=== PATIENT | male | born 1955 | race Caucasian/White ===

== ENCOUNTER → 2019-11-09 15:23 | Outpatient (BNVA) | payer BC, SELFPAY | PROVIDERS: Visit Provider Nurse Practitioner Family | DX: R30.0 Dysuria (principal) | CPT/HCPCS: 81001 ==

== ENCOUNTER → 2020-12-04 11:15 | Outpatient (BNVA) | payer BC, SELFPAY | PROVIDERS: Visit Provider Nurse Practitioner Family | DX: M25.552 Pain in left hip (principal); G89.29 Other chronic pain; M51.36 Other intervertebral disc degeneration, lumbar region; Z79.899 Other long term (current) drug therapy; Z13.6 Encounter for screening for cardiovascular disorders; E55.9 Vitamin D deficiency, unspecified | CPT/HCPCS: 80053; 80061; 81003; 82306; 83036; 84443; 85025 ==

== ENCOUNTER → 2020-12-11 14:34 | Outpatient (BNVA) | payer BC, SELFPAY | PROVIDERS: Referring Provider Nurse Practitioner Family; Visit Provider Orthopaedic Surgery | DX: M48.062 Spinal stenosis, lumbar region with neurogenic claudication; G89.29 Other chronic pain | CPT/HCPCS: 72110; 73523 ==

== ENCOUNTER → 2020-12-18 08:29 | Outpatient (BNVA) | payer BC, SELFPAY | PROVIDERS: PCP Nurse Practitioner Family; Referring Provider Orthopaedic Surgery; Visit Provider Anesthesiology Pain Medicine | DX: G89.29 Other chronic pain (principal); M54.9 Dorsalgia, unspecified; M47.816 Spondylosis without myelopathy or radiculopathy, lumbar region; M51.36 Other intervertebral disc degeneration, lumbar region; M25.552 Pain in left hip | CPT/HCPCS: 99205 ==

== ENCOUNTER → 2021-12-09 11:00 | Outpatient (BNVA) | payer BC, SELFPAY | PROVIDERS: PCP Nurse Practitioner Family; Visit Provider Nurse Practitioner | DX: M25.511 Pain in right shoulder (principal) | CPT/HCPCS: 73030 ==

== ENCOUNTER 2022-01-20 06:01 | Outpatient (CLI) | payer BC, SELFPAY ==
--- NOTE | 2022-01-20 06:15 | US_ITS ---
WS: [id number] Complete ABDOMINAL ULTRASOUND HISTORY: R19.7 - Diarrhea, unspecified COMPARISON: None available. Liver: 17.8 cm in length. Liver is top normal size. No mass or bile duct dilatation. Normal echogenic ity. Portal Vein: Normal hepatopetal flow with monophasic waveform. Gallbladder: Normally distended with no gallstones, wall thickening or pericholecystic fluid. Gallbladder wall thickness: 0.3 cm. Pancreas: Only partially visualized due to body habitus and bowel gas. CBD: 0.3 cm. Right kidney: 10.0 cm x 4.5 cm x 4.5 cm. No mass, cortical thickening or hydronephrosis. Left kidney: 9.7 cm x 6.2 cm x 7.5 cm. No mass, cortical thickening or hydronephrosis. Spleen: Normal size and echogenicity. Abdominal aorta and IVC are within normal limits. No ascites. US/US abdomen complete* [id number] IMPRESSION: 1. Normal gallbladder. 2. Very mild hepatomegaly. 3. Negative kidneys.
== END 2022-01-20 06:02 | disposition home or self-care (01) ==
LOC: RAD 06:02
PROVIDERS: PCP Nurse Practitioner; Visit Provider Nurse Practitioner
DX: R19.7 Diarrhea, unspecified (principal); R10.9 Unspecified abdominal pain
CPT/HCPCS: 73030; 76700

== ENCOUNTER 2022-04-03 07:46 | Outpatient (CLI) | payer BC, SELFPAY ==
--- NOTE | 2022-04-03 08:00 | NM_ITS ---
WS: [id number] NUCLEAR MEDICINE HIDA SCAN CLINICAL INFORMATION: R19.8 - Other specified symptoms and signs involving the ... TECHNIQUE: Following intravenous administration of 7.5 mCi of technetium 99m mebrofenin, images of th e abdomen were obtained over the course of 60 minutes. Next, gallbladder ejection fraction was determ ined by obtaining preprandial and one-hour postprandial images of the gallbladder following oral richardson stion of Ensure. COMPARISON: Ultrasound January 20, 2022 FINDINGS: Normal hepatic uptake at 5 minutes. Hepatomegaly. Normal hepatic excretion. Gallbladder is visualized by 15 minutes. No evidence of acute cholecystitis. Normal common bile duct and small bowel activity. Gallbladder ejection fraction 82% within normal limits. No evidence of chronic cholecystitis. NM/NM hepatobiliary w phar* [id number] IMPRESSION: 1. No evidence of acute or chronic cholecystitis. 2. Gallbladder ejection fraction 82% within normal limits
== END 2022-04-03 07:47 | disposition home or self-care (01) ==
PROVIDERS: PCP Nurse Practitioner; Visit Provider Nurse Practitioner
DX: R19.8 Other specified symptoms and signs involving the digestive system and abdomen (principal)
CPT/HCPCS: 78227; A9537

== ENCOUNTER 2022-04-28 08:22 | Outpatient (CLI) | payer BC, SELFPAY ==
--- NOTE | 2022-04-28 08:30 | FL_ITS ---
WS: [id number] Exam: FL barium swallow modifd [id number] Date/Time of Exam: 04/28/2022 8:55 AM Reason For Exam: Fluoroscopy time: 2min [id number] minutes # of spot films: 1 Modified barium swallow was performed in conjunction with the speech therapy service. Swallowing function at the level of the oropharynx was normal. The patient tolerated thin liquid, nec tar consistency, and pudding consistency barium foodstuffs without difficulty. The patient tolerated solid barium mixture foodstuffs well. The patient ingested a barium tablet without complication or di fficulty. No aspiration or penetration was identified. FL/FL barium swallow modifd [id number] IMPRESSION: 1. Unremarkable modified barium swallow. No aspiration or penetration was ident ified. A separate report of findings and recommendations will follow from the speech t herapy service.
== END 2022-04-28 08:23 | disposition home or self-care (01) ==
LOC: RAD 08:24
PROVIDERS: PCP Nurse Practitioner; Visit Provider Surgery
DX: R19.7 Diarrhea, unspecified (principal)
CPT/HCPCS: 74230; 92611

== ENCOUNTER 2022-05-15 08:11 | Day surgery (SDC) | payer BC, SELFPAY ==
[2022-05-13 13:41] VITALS: BMI 24.5
[2022-05-15 08:23] VITALS: BP 148/90; PULSE 86; RESP 18; TEMP 36.4; O2SAT 98
[2022-05-15] MEDS: sodium chloride 0.9% 1,000 ML 30 ML IV (08:35)
--- NOTE | 2022-05-15 09:10 | ANES.PREANE2 ---
Pre-Anesthetic Assessment Height/Weight: Height 1.73 m Weight 73.028 kg Temp Pulse Resp BP Pulse Ox O2 Del Method 97.5 F L 86 18 148/90 98 05/15/22 08:23 05/15/22 08:23 05/15/22 08:23 05/15/22 08:23 05/15/22 08:23 05/15/22 08:23 Preop Diagnosis: Dysphagia and change in bowel habit Operation Date: 05/15/22 09:45 Proposed Procedures p EGD and colonoscopy [id number],R19.7,R13.10(Not Applicable) - Riley Marie MD s Colonoscopy(Not Applicable) - Riley Marie MD Familial anesthetic complications: none Was Beta Kimmie taken within 24 hours: N/A Was Clonidine taken within 24 hours: N/A Last intake: Intake Last Liquid Date 05/14/22 Last Liquid Time 23:30 Last Solid Date 05/13/22 Last Solid Time 17:00 Social No alcohol and No tobacco Exam alert, oriented x 3, clear to auscultation bilaterally and regular rate & rhythm Airway Submandibular: within normal limits Cervical ROM: within normal limits Mallampati: Class II Dentition: full CV/HEM Hypertension Musc/skel Lower Back Pain Anesthetic Plan ASA status: 2 Anesthesia: MAC Medications/Allergies Home Medications Medication Instructions Recorded Confirmed Last Taken Type acetaminophen 325 mg tablet 325 mg PO QID PRN headache 11/09/19 05/15/22 05/14/22 History (Tylenol) dorzolamide 2 % eye drops 1 drp ophthalmic (eye) TID 12/04/20 05/15/22 05/15/22 History latanoprostene bunod 0.024 % eye 1 drp ophthalmic (eye) DAILY 12/04/20 05/15/22 05/14/22 History drops Allergies Allergy/AdvReac Type Severity Reaction Status Date / Time ciprofloxacin [From Cipro] Allergy unknown Verified 04/08/22 13:54 levofloxacin [From Levaquin] Allergy unknown Verified 04/08/22 13:54 timolol Allergy chest pain Verified 04/08/22 13:54 Corticosteroids AdvReac Unknown Verified 04/08/22 13:54 (Glucocorticoids) lodine Allergy chest pain Uncoded 04/08/22 13:54 Current Medications Generic Name Dose Route Start Last Admin Trade Name Freq PRN Reason Stop Dose Admin Sodium Chloride 1,000 mls @ 30 mls/hr 05/15/22 08:30 05/15/22 08:35 Sodium Chloride 0.9% IV 30 mls/hr .Q24H LYDIA Administration PFSH Anesthesia Medical History Chronic left hip pain DDD (degenerative disc disease), lumbar Dermatitis Fracture of tibia or fibula following insertion of orthopedic implant, joint prosthesis, or bone plate, left leg GERD (gastroesophageal reflux disease) Glaucoma Hypertension screen Low back pain radiating to both legs Medication management Skin lesion Vitamin D deficiency Vitamin D deficiency Surgical History S/P hernia repair S/P left knee surgery S/P nasal polypectomy Status post appendectomy Status post excision of neuroma both feet Status post functional endoscopic sinus surgery Status post glaucoma surgery Family History Other CAD (coronary artery disease) Hypertension Social History Smoking and tobacco status: never smoked Alcohol intake: never History of recent travel: No Data Anesthesia Cardiac Studies: No Data to Display
--- NOTE | 2022-05-15 09:32 | W.PM.OPSFHP ---
Same Day Surgery H&P Indication for Procedure/HPI DATE OF PROCEDURE: May 15, 2022 CHIEF COMPLAINT/INDICATIONFOR SURGICAL PROCEDURE: Bowel issues PREOP DIAGNOSIS: Dysphagia and change in bowel habit PLANNED PROCEDURE: Operation Date: 05/15/22 09:45 Proposed Procedures p EGD and colonoscopy [id number],R19.7,R13.10(Not Applicable) - Riley Marie MD s Colonoscopy(Not Applicable) - Riley Marie MD 04/08/2022 This is a pleasant 66 years old gentleman presents with history of intermittent episodes of difficulty of swallowing.? Also patient reports history of loose stools that got worse.? He reports weight loss of about 10 to 12 pounds over the past few months.? No associated pain with dysphagia. Patient reports history of diarrhea, nonbloody in nature, has been going on for quite some time.? Patient denies history of recent travels, antibiotics, change in medications, questionable source of water, no history of sick contacts, no history of thyroid disorders. Patient reports no history of gallbladder disorders.? And denies history of colon cancer, last colonoscopy was done about 10 to 15 years ago and does not recall any abnormalities.? Patient did notice though that he feels better when he avoids milk products. Interim history 05/15/2022 Patient comes today for diagnostic EGD and colonoscopy, patient did undergo a modified barium swallow on 04/28/2022 and did show; Unremarkable modified barium swallow. No aspiration or penetration was identified. ROS All systems have been reviewed negative except as for the above or per problem list. Medications/Allergies* Home Medications Medication Instructions Recorded Confirmed Type acetaminophen 325 mg tablet 325 mg PO QID PRN headache 11/09/19 05/15/22 History (Tylenol) dorzolamide 2 % eye drops 1 drp ophthalmic (eye) TID 12/04/20 05/15/22 History latanoprostene bunod 0.024 % eye 1 drp ophthalmic (eye) DAILY 12/04/20 05/15/22 History drops Allergies/Adverse Reactions Allergy/AdvReac Type Severity Reaction Status Date / Time ciprofloxacin [From Cipro] Allergy unknown Verified 05/15/22 09:33 levofloxacin [From Levaquin] Allergy unknown Verified 05/15/22 09:33 timolol Allergy chest pain Verified 05/15/22 09:33 Corticosteroids AdvReac Unknown Verified 05/15/22 09:33 (Glucocorticoids) lodine Allergy chest pain Uncoded 05/15/22 09:33 Current Medications: Generic Name Dose Route Start Last Admin Trade Name Anand PRN Reason Stop Dose Admin Sodium Chloride 1,000 mls @ 30 mls/hr 05/15/22 08:30 05/15/22 08:35 Sodium Chloride 0.9% IV 30 mls/hr .Q24H LYDIA Administration Pertinent History/Comorbid Conditions* Medical History (Updated 04/08/22 @ 13:55 by Riley Marie MD) Chronic left hip pain DDD (degenerative disc disease), lumbar Dermatitis Fracture of tibia or fibula following insertion of orthopedic implant, joint prosthesis, or bone plate, left leg GERD (gastroesophageal reflux disease) Glaucoma Hypertension screen Low back pain radiating to both legs Medication management Skin lesion Vitamin D deficiency Vitamin D deficiency Surgical History (Updated 06/26/21 @ 10:36 by Mackenzie Lynn DO) S/P hernia repair S/P left knee surgery S/P nasal polypectomy Status post appendectomy Status post excision of neuroma both feet Status post functional endoscopic sinus surgery Status post glaucoma surgery Family History (Updated 11/09/19 @ 15:14 by Andressa Christensen LPN) CAD (coronary artery disease) Hypertension Social History Smoking and tobacco status: never smoked Alcohol intake: never History of recent travel: No Pertinent Exam Findings alert, oriented x 3, regular rate & rhythm and procedure specific exam findings (Abdominal exam nontender nondistended soft) Recommendations Surgery/Procedure today (Diagnostic EGD and colonoscopy) Coding Level of Care Code Acute Supervisor Maintenance And Custodians for Dominik Mccollum
[2022-05-15 10:38] VITALS: BP 107/76; PULSE 89; RESP 14; TEMP 36.1; O2SAT 95
[2022-05-15 10:54] VITALS: BP 105/74; PULSE 77; RESP 16; O2SAT 96
[2022-05-15 11:06] VITALS: BP 134/84; PULSE 71; RESP 16; O2SAT 95
[2022-05-15 11:16] VITALS: BP 135/87; PULSE 72; RESP 18; O2SAT 94
--- NOTE | 2022-05-15 14:57 | ANE.PACU2 ---
Inpatient post-anesthesia follow up: Airway intact: Yes Vital signs: Temperature 97 F Pulse Rate 72 Respiratory Rate 18 Blood Pressure 135/87 Pulse Oximetry 94 Oxygen Delivery Me thod Room Air Oxygen Flow Rate Fraction of Inspir ed Oxygen Hydration adequate: Yes Nausea and vomiting: No Pain level: 1 Mental status: Baseline
== END 2022-05-15 11:28 | disposition home or self-care (01) ==
PROVIDERS: PCP Nurse Practitioner; Visit Provider Surgery
PROC: 0DJ08ZZ Inspection of Upper Intestinal Tract, Via Natural or Artificial Opening Endoscopic (ICD-10-PCS; CPT 43235; principal; 2022-05-15 09:45)
PROC: 0DJD8ZZ Inspection of Lower Intestinal Tract, Via Natural or Artificial Opening Endoscopic (ICD-10-PCS; CPT 45378; 2022-05-15 09:45)
DX: R19.7 Diarrhea, unspecified (principal); R13.10 Dysphagia, unspecified; K57.30 Diverticulosis of large intestine without perforation or abscess without bleeding; K21.00 Gastro-esophageal reflux disease with esophagitis, without bleeding; K44.9 Diaphragmatic hernia without obstruction or gangrene; K29.80 Duodenitis without bleeding; K29.50 Unspecified chronic gastritis without bleeding; B96.81 Helicobacter pylori [H. pylori] as the cause of diseases classified elsewhere
CPT/HCPCS: 43239; 45378; 82274; 83630; 87493; 87506; 88305; J2704; J7030

== ENCOUNTER → 2022-07-07 09:03 | Outpatient (BNVA) | payer BC, SELFPAY | PROVIDERS: PCP Nurse Practitioner; Visit Provider Nurse Practitioner | DX: R53.83 Other fatigue (principal); Z79.899 Other long term (current) drug therapy; A04.72 Enterocolitis due to Clostridium difficile, not specified as recurrent | CPT/HCPCS: 80053; 80061; 85025; 87338; 87493 ==

== ENCOUNTER → 2022-07-30 11:45 | Outpatient (BNVA) | payer BC, SELFPAY | PROVIDERS: PCP Nurse Practitioner; Visit Provider Nurse Practitioner | DX: A04.72 Enterocolitis due to Clostridium difficile, not specified as recurrent (principal) | CPT/HCPCS: 87493 ==

== ENCOUNTER 2022-12-05 14:13 | Outpatient (CLI) | payer BC, SELFPAY ==
--- NOTE | 2022-12-05 14:30 | MR_ITS ---
WS: [id number] MRI RIGHT KNEE NONCONTRAST TECHNIQUE: Axial PD, coronal PD fat sat, coronal PD, sagittal PD, and sagittal PD fat-sat images obta ined. CLINICAL INFORMATION: M25.561 - Pain in right knee COMPARISON: None. FINDINGS: Distal quadriceps and patella tendons are intact. ACL and PCL appear intact. Hypertrophic patella. Mo derate to advanced tricompartmental arthritis. Moderate joint space narrowing medial and lateral join t compartments. Moderate to advanced chondromalacia patella. Patellar retinaculum appears intact. Medial and lateral collateral ligaments appear intact. Tiny popliteal cyst. Subchondral cystic change with edema involving the posterior medial tibial plateau and tibial spines. Normal lateral meniscus. Tiny horizontal tear involving the posterior horn medial meniscus extending to the articular surface . No other suspicious findings. MR/MR knee RT wo con* [id number] IMPRESSION: 1. Normal ACL and PCL. 2. 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 3. Moderate chondromalacia patella. 4. Subchondral cystic change and edema involving the posterior medial tibial p lateau and tibial spines. 5. Tiny horizontal tear involving the posterior horn medial meniscus extending to the articular surface. 6. Medial and lateral collateral ligaments appear intact. 7. Tiny popliteal cyst. Outbridge grading:
== END 2022-12-05 14:14 | disposition home or self-care (01) ==
PROVIDERS: PCP Nurse Practitioner; Visit Provider Nurse Practitioner
DX: M71.21 Synovial cyst of popliteal space [Baker], right knee; M13.861 Other specified arthritis, right knee; M22.41 Chondromalacia patellae, right knee; S83.241A Other tear of medial meniscus, current injury, right knee, initial encounter; X58.XXXA Exposure to other specified factors, initial encounter
CPT/HCPCS: 73721

== ENCOUNTER → 2022-12-10 14:38 | Outpatient (BNVA) | payer BC, SELFPAY | PROVIDERS: PCP Nurse Practitioner; Visit Provider Specialist | DX: M25.561 Pain in right knee (principal) | CPT/HCPCS: 73560; 73565 ==

== ENCOUNTER → 2023-01-15 08:58 | Outpatient (BNVA) | payer BC, SELFPAY | PROVIDERS: PCP Nurse Practitioner; Visit Provider Nurse Practitioner | DX: A04.72 Enterocolitis due to Clostridium difficile, not specified as recurrent (principal) | CPT/HCPCS: 87338; 87493 ==

== ENCOUNTER → 2023-01-22 09:17 | Outpatient (BNVA) | payer BC, SELFPAY | PROVIDERS: PCP Nurse Practitioner; Visit Provider Nurse Practitioner | DX: A04.72 Enterocolitis due to Clostridium difficile, not specified as recurrent (principal) | CPT/HCPCS: 87493 ==

== ENCOUNTER → 2023-09-16 13:26 | Outpatient (BNVA) | payer BC, SELFPAY | PROVIDERS: PCP Nurse Practitioner; Visit Provider Specialist | DX: M17.32 Unilateral post-traumatic osteoarthritis, left knee; M17.11 Unilateral primary osteoarthritis, right knee | CPT/HCPCS: 73560; 73565 ==

== ENCOUNTER → 2024-01-29 12:07 | Outpatient (BNVA) | payer BC, SELFPAY | PROVIDERS: PCP Nurse Practitioner Family; Visit Provider Nurse Practitioner Family | DX: Z13.6 Encounter for screening for cardiovascular disorders (principal); E55.9 Vitamin D deficiency, unspecified; Z79.899 Other long term (current) drug therapy; Z12.5 Encounter for screening for malignant neoplasm of prostate; R06.02 Shortness of breath | CPT/HCPCS: 71046; 80053; 80061; 81003; 83036; 84443; 85025; G0103 ==

== ENCOUNTER → 2024-06-27 14:26 | Outpatient (BNVA) | payer BC, SELFPAY | PROVIDERS: PCP Nurse Practitioner Family; Visit Provider Nurse Practitioner Family | DX: A04.72 Enterocolitis due to Clostridium difficile, not specified as recurrent (principal); K52.9 Noninfective gastroenteritis and colitis, unspecified; Z91.018 Allergy to other foods; A04.8 Other specified bacterial intestinal infections | CPT/HCPCS: 82784; 82785; 83516; 86001; 86003 ==

== ENCOUNTER → 2024-06-28 11:14 | Outpatient (BNVA) | payer BC, SELFPAY | PROVIDERS: PCP Nurse Practitioner Family; Visit Provider Nurse Practitioner Family | DX: A04.72 Enterocolitis due to Clostridium difficile, not specified as recurrent (principal); K52.9 Noninfective gastroenteritis and colitis, unspecified; Z91.018 Allergy to other foods; A04.8 Other specified bacterial intestinal infections | CPT/HCPCS: 83630; 87177; 87209; 87328; 87329; 87338; 87493 ==

== ENCOUNTER → 2024-07-11 14:02 | Outpatient (BNVA) | payer BC, SELFPAY | PROVIDERS: PCP Nurse Practitioner Family; Visit Provider Nurse Practitioner Family | DX: A93.8 Other specified arthropod-borne viral fevers (principal) | CPT/HCPCS: 86003; 86008; 86160; 86618; 86666; 86668; 86753; 86757 ==

== ENCOUNTER → 2024-08-04 16:43 | Outpatient (BNVA) | payer BC, SELFPAY | PROVIDERS: PCP Nurse Practitioner Family; Visit Provider Nurse Practitioner Family | DX: R31.9 Hematuria, unspecified | CPT/HCPCS: 81000 ==

== ENCOUNTER 2025-02-28 05:00 | Outpatient (RCR) | payer BC, SELFPAY | END 2025-03-30 23:59 | disposition home or self-care (01) | LOC: WPT 05:00 | PROVIDERS: PCP Nurse Practitioner Family; Visit Provider Nurse Practitioner Family | DX: R42 Dizziness and giddiness (principal) | CPT/HCPCS: 97110; 97161; 97530 ==

== ENCOUNTER 2025-03-31 05:00 | Outpatient (RCR) | payer BC, SELFPAY | END 2025-04-30 23:59 | disposition home or self-care (01) | LOC: WPT 05:00 | PROVIDERS: PCP Nurse Practitioner Family; Visit Provider Nurse Practitioner Family | DX: R42 Dizziness and giddiness (principal) | CPT/HCPCS: 97110; 97530 ==

== ENCOUNTER → 2025-05-10 16:10 | Outpatient (BNVA) | payer BC, SELFPAY | PROVIDERS: PCP Nurse Practitioner Family; Visit Provider Nurse Practitioner Family | DX: Z91.018 Allergy to other foods (principal); E78.2 Mixed hyperlipidemia; E55.9 Vitamin D deficiency, unspecified; Z79.899 Other long term (current) drug therapy; R53.83 Other fatigue | CPT/HCPCS: 80053; 80061; 81003; 82306; 82607; 82728; 82746; 83036; 83550; 83921; 84439; 84443; 85025; 85651; 86140 ==

== ENCOUNTER 2025-05-23 10:32 | Emergency (ER) | payer MEDICARE, SELFPAY ==
[2025-05-23 10:48] VITALS: BP 183/99; PULSE 99; TEMP 36.8; O2SAT 96; BMI 22.8
--- NOTE | 2025-05-23 10:57 | XR_ITS ---
WS: [id number] Exam: XR knee LT 3V* [id number] Date/Time of Exam: 05/23/2025 11:04 AM Reason For Exam: pain Comparison 09/16/2023. No acute fracture. Advanced tricompartmental degenerative change. Healed fracture of the lateral tibial plateau with plate and screw fixation. No hardware complication seen. Chondrocalcinosis. Prominent joint effusion in the suprapatellar bursa. Prominent bone spur projects from the superior pole of pa tella. Valgus deformity of the knee. XR/XR knee LT 3V* [id number] IMPRESSION: 1. Advanced tricompartmental degenerative changes. Stable postoperative changes . 2. Prominent joint effusion.
[2025-05-23 11:14] LABS: Hematocrit 41.5 % (37-53); Hemoglobin 14.30 g/dL (11.27-16.99); Mean Corpuscular HGB Conc 34.5 g/dL (30-55); Mean Corpuscular Hemoglobin 31.6 pg (27-33); Mean Corpuscular Volume 91.8 fl (82-101); Nucleated Red Blood Cells % 0 %; Platelet Count 289 10^3/cmm (157-399); Red Blood Count 4.52 10^6/uL (3.85-5.65); White Blood Count 11.00 10^3/uL (3.29-11.43)
[2025-05-23 11:24] VITALS: BP 164/95; PULSE 92; O2SAT 96
[2025-05-23 11:28] LABS: Alanine Aminotransferase 8 U/L (0-41); Albumin Level 4.2 g/dL (3.5-5.2); Alkaline Phosphatase 114 U/L (40-130); Anion Gap 15.5 (5-19); Aspartate Amino Transferase 12 U/L (0-40); Blood Urea Nitrogen 13 mg/dL (8-23); Calcium 9.0 mg/dL (8.5-10.5); Carbon Dioxide 23 mmol/L (22-29); Chloride 102 mmol/L (98-107); Creatinine Clr Calc Pharmacy 81.7645; Globulin 3.2 g/dL (1.3-4.6); Glucose 134 mg/dL (65-115); Osmolality Calculated 286 mOsm/kg (285-295); Potassium 3.5 mmol/L (3.5-5.1); Sodium 137 mmol/L (136-145); Total Protein 7.4 g/dL (6.6-8.7)
--- NOTE | 2025-05-23 11:31 | ED_ITS ---
HPI - Extremity Problem 2 General: Chief complaint: Extremity Injury, Lower Stated complaint: left knee swollen and a low grade fever Time Seen by Provider: 05/23/25 10:54 History of Present Illness: 69-year-old male presents emergency room with complaint of pain and discomfort in his left knee.. He said this problem multiple times before he will intermittently get steroid injections in his knee he does like take the oral steroids because he is in problems of those related to his glaucoma. No fever sweats or chills. No recent trauma to the knee. He is not on any anticoagulants. He did recently have a tooth extraction and was concerned about the way. he has not had any pain in the right side of his face no drainage. No swelling. Nurses note stated patient had a left knee arthroplasty that is not correct patient previously had a fracture and has a scar from open reduction internal fixation of the fracture but he did not have an arthroplasty previously. Associated symptoms: Deny chest pain or rash Related Data Home Medications ?Medication ?Instructions ?Recorded ?Confirmed acetaminophen 500 mg oral powder 500 mg PO QID PRN 07/2405/10/25 packet (Tylenol Extra Strength) dorzolamide 2 % eye drops 2 drp ophthalmic (eye) BID 1 09/10/23 05/10/25 latanoprost 0.005 % eye drops 1 drp ophthalmic (eye) D AILY 07/11/24 05/10/25 Previous Rx's ?Medication ?Instructions ?Recorded cyclobenzaprine 5 mg tablet 5 mg PO BID PRN muscle spa sm 30 01/29/24 days #60 tabs epinephrine 0.3 mg/0.3 mL 0.3 mg (0.3 mL) IM Q10M PRN 08/04/24 injection, auto-injector (EpiPen anaphylaxis #2 ea 2-Triston) hydrocodone 5 mg-acetaminophen 325 1 tab PO Q6H PRN pa in #5 tabs 05/23/25 mg tablet Allergies Allergy/AdvReac Type Severity Reaction Status Date / Time ciprofloxacin (From Cipro) Allergy unknown Verified 05/23/25 10:52 iodine Allergy ADR-Chest Verified 05/23/25 10:52 Pain levofloxacin (From Levaquin) Allergy unknown Verified 05/23/25 10:52 timolol Allergy chest pain Verified 05/23/25 10:52 diclofenac AdvReac Mild Unknown Verified 05/23/25 10:52 Corticosteroids AdvReac Unknown Verified 05/23/25 10:52 (Glucocorticoids) alpha gal Allergy ADR-Nausea Uncoded 05/23/25 10:52 Review of Systems 2 Const: Denies: chills Card: Denies: chest pain Resp: Denies: dyspnea GI: Denies: abdominal pain : Denies: dysuria, urinary frequency or urinary urgency Musc: Reports: joint pain; Denies: neck pain or back pain Skin/Breast: Denies: rash PFSH ED 2 PFSH: Medical History Chronic fatigue Vertigo Allergy to alpha-gal Tick fever Hx of Clostridium difficile infection H. pylori infection Food allergy Chronic diarrhea Tick bite Mixed hyperlipidemia Hematuria Dizziness Upper respiratory infection Muscle spasm Shortness of breath Prostate cancer screening History of nonmelanoma skin cancer Gastritis and duodenitis Dermatitis Skin lesion Vitamin D deficiency Hypertension screen Medication management Chronic left hip pain DDD (degenerative disc disease), lumbar Fracture of tibia or fibula following insertion of orthopedic implant, joint prosthesis, or bone plate, left leg Low back pain radiating to both legs Glaucoma Vitamin D deficiency GERD (gastroesophageal reflux disease) Surgical History Hx of colonoscopy 12 years ago History of esophagogastroduodenoscopy (EGD) Status post glaucoma surgery S/P left knee surgery Status post appendectomy Status post functional endoscopic sinus surgery Status post excision of neuroma both feet S/P hernia repair S/P nasal polypectomy Family History Other CAD (coronary artery disease) Hypertension Social History Smoking and tobacco/nicotine status: never used tobacco/nicotine Alcohol intake: never Substance/Drug Use: never Physical Exam 2 Const: GENERAL APPEARANCE: cooperative ORIENTATION/CONSCIOUSNESS: Yes awake, Yes oriented to person, Yes oriented to place and Yes oriented to time HENMT: COMMON NORMALS: normocephalic, atraumatic and hearing grossly normal bilaterally HEAD & SCALP: normocephalic and atraumatic OTHER: Oral mucosa pink and moist. First molar on the right maxilla is absent. Adjacent gum is not swollen or tender. There is no cervical lymphadenopathy. No sign of abscess no drainage. Resp: COMMON NORMALS: normal respiratory effort, No retractions, No use of accessory muscles and clear to auscultation bilaterally AUSCULTATION: clear to auscultation bilaterally Cardio: COMMON NORMALS: regular rate, regular rhythm and No murmurs present (Cardio) RATE: regular rate RHYTHM: regular rhythm GI: COMMON NORMALS: Soft to palpation and No hepatosplenomegaly present A USCULTATION: Yes normoactive bowel sounds PALPATION: Yes Soft to palpation, No Tenderness to palpation present (GI), No Guarding due to palpation present (GI) and Yes No hepatosplenomegaly present Neuro: SENSORIUM/ORIENTATION: Yes oriented to person, Yes oriented to place and Yes oriented to time Skin: COMMON NORMALS: no rashes or lesions noted GENERAL SKIN EXAM: no rashes or lesions noted Course 2 Vital Signs: Vital signs: Vital Signs Temperature 98.3 F 05/23/25 10:48 Pulse Rate 92 05/23/25 11:24 Blood Pressure 164/95 05/23/25 11:24 Pulse Oximetry 96 05/23/25 11:24 Oxygen Delivery Me thod Room Air 05/23/25 11:24 MDM - Extremity (Nontraumatic) Medical Decision Making No fever at this time. The knee is swollen. He appears to have a suprapatellar bursitis. There is a slight joint effusion on the x-ray. No acute fracture or significant osteoarthritis patient has had recurrent steroid injections in the past due to his glaucoma he does not take oral steroids. His white count is normal at this time and his temperature is normal sed rate is minimally elevated. Clinically no evidence of septic joint at this time. Refer back to Ortho. He states he has a couple weeks late from when he usually would get his steroid injection of his knee. Return if has further problems. Lab Data 05/23/25 11:07 05/23/25 11:07 Radiology Impressions Knee X-Ray 05/23/25 10:57 IMPRESSION: 1. Advanced tricompartmental degenerative changes. Stable postoperative changes. 2. Prominent joint effusion. Laboratory Results WBC 11.00 10^3/uL (3.29-11.43) 05/23/25 11:07 RBC 4.52 10^6/uL (3.85-5.65) 05/23/25 11:07 Hgb 14.30 g/dL (11.27-16.99) 05/23/25 11:07 Hct 41.5 % (37-53) 05/23/25 11:07 MCV 91.8 fl (82-101) 05/23/25 11:07 MCH 31.6 pg (27-33) 05/23/25 11:07 MCHC 34.5 g/dL (30-55) 05/23/25 11:07 RDW 12.7 % (12.1-15.1) 05/23/25 11:07 Plt Count 289 10^3/cmm (157-399) 05/23/25 11:07 MPV 8.7 fL (7.4-10.4) 05/23/25 11:07 Neut % (Auto) 77.2 % 05/23/25 11:07 Lymph % (Auto) 10.0 % 05/23/25 11:07 [place] % (Auto) 11.7 % 05/23/25 11:07 Eos % (Auto) 0.5 % 05/23/25 11:07 Baso % (Auto) 0.3 % 05/23/25 11:07 Neut # (Auto) 8.49 10^3/uL (1.8-7.7) H 05/23/25 11:07 Lymph # (Auto) 1.1 10^3/uL (0.8-4.8) 05/23/25 11:07 [place] # (Auto) 1.3 10^3/uL (0.2-0.9) H 05/23/25 11:07 Eos # (Auto) 0.1 10^3/uL (0.0-0.8) 05/23/25 11:07 Baso # (Auto) 0.0 10^3/uL (0.0-0.1) 05/23/25 11:07 Nucleated RBC % (auto) 0 % 05/23/25 11:07 Nucleated RBCs # 0.0 /100WBC 05/23/25 11:07 ESR 16 mm/hr (0-10) H 05/23/25 11:07 Sodium 137 mmol/L (136-145) 05/23/25 11:07 Potassium 3.5 mmol/L (3.5-5.1) 05/23/25 11:07 Chloride 102 mmol/L (98-107) 05/23/25 11:07 Carbon Dioxide 23 mmol/L (22-29) 05/23/25 11:07 Anion Gap 15.5 (5-19) 05/23/25 11:07 BUN 13 mg/dL (8-23) 05/23/25 11:07 Creatinine 0.7 mg/dL (0.7-1.2) 05/23/25 11:07 GFR Calculation Not Reportable 05/23/25 11:07 Glucose 134 mg/dL (65-115) H 05/23/25 11:07 Calculated Osmolality 286 mOsm/kg (285-295) 05/23/25 11:07 Calcium 9.0 mg/dL (8.5-10.5) 05/23/25 11:07 Total Bilirubin 1.0 mg/dL (0.15-1.2) 05/23/25 11:07 AST 12 U/L (0-40) 05/23/25 11:07 ALT 8 U/L (0-41) 05/23/25 11:07 Alkaline Phosphatase 114 U/L (40-130) 05/23/25 11:07 Total Protein 7.4 g/dL (6.6-8.7) 05/23/25 11:07 Albumin 4.2 g/dL (3.5-5.2) 05/23/25 11:07 Globulin 3.2 g/dL (1.3-4.6) 05/23/25 11:07 All radiology interpretation(s) finalized by discharge Discharge Plan Discharge Patient Disposition: Home Clinical Impression: Joint effusion of knee Condition: Stable Prescriptions: New hydrocodone-acetaminophen 5-325 mg tablet 1 tab PO Q6H PRN (Reason: pain) Qty: 5 0RF No Action dorzolamide 2 % drops 2 drp ophthalmic (eye) BID Tylenol Extra Strength 500 mg powder in packet 500 mg PO QID PRN latanoprost 0.005 % drops 1 drp ophthalmic (eye) DAILY epinephrine [EpiPen 2-Triston] 0.3 mg/0.3 mL auto-injector 0.3 mg IM Q10M PRN (Reason: anaphylaxis) Qty: 2 1RF Rx Instructions: for 2 doses cyclobenzaprine 5 mg tablet 5 mg PO BID PRN (Reason: muscle spasm) 30 Days Qty: 60 0RF Discharge Orders: Discharge ED (Routine); Ordered 05/23/25 Ordered By: Allen Lira Referrals: AMENA Ragsdale, CRINKLING MACHINE OPERATOR [Primary Care Provider, Family Practice] Discharge Diet: Usual diet Discharge Activity: Limit activity as instructed Patient Instructions: Opioid Safety, Pain Management, Patient Portal & Ange Instructions Activity Restrictions/Additional Instructions: [facility]. It is very important that you follow up as instructed or that you return to the Emergency Department should you have concerns or if your condition changes or worsens in any way. Emergency department visits are focused on emergent conditions, in some cases you may require further evaluation on an outpatient basis. You are seen emergency room with complaint of pain in the right knee. There is a moderate joint effusion your white count was normal your sed rate was minimally elevated. No signs of fracture on the x-ray. You are given pain medications and we will have you follow-up with Dr. Shepherd for consideration of joint injection. (Please note that included in your discharge packet is information concerning opioid safety and pain management. This information is given to all patients were discharged from the ER regardless of their discharge diagnosis or the medicines they usually take or are prescribed.) Print Language: Persian Coding Level of Care Code ED Front Of House Manager for Dominik Mccollum
== END 2025-05-23 11:40 | disposition home or self-care (01) ==
PROVIDERS: Emergency Provider Family Medicine; PCP Nurse Practitioner Family
DX: M25.462 Effusion, left knee (principal); E78.2 Mixed hyperlipidemia; Z85.828 Personal history of other malignant neoplasm of skin
CPT/HCPCS: 36415; 73562; 80053; 85025; 85651; 99284

== ENCOUNTER → 2025-05-24 14:31 | Outpatient (BNVA) | payer MEDICARE, SELFPAY | PROVIDERS: PCP Nurse Practitioner Family; Visit Provider Specialist | DX: M17.32 Unilateral post-traumatic osteoarthritis, left knee (principal); M25.462 Effusion, left knee | CPT/HCPCS: 20605; 20610; 73560; 73565; 80503; 87070; 87075; 87205; 99214 ==

== ENCOUNTER → 2025-05-26 09:28 | Outpatient (BNVA) | payer MEDICARE, SELFPAY | PROVIDERS: PCP Nurse Practitioner Family; Visit Provider Nurse Practitioner Family | DX: L82.1 Other seborrheic keratosis (principal); L57.8 Other skin changes due to chronic exposure to nonionizing radiation; X32.XXXA Exposure to sunlight, initial encounter; L81.4 Other melanin hyperpigmentation; L57.0 Actinic keratosis; I78.8 Other diseases of capillaries; L72.0 Epidermal cyst; Z08 Encounter for follow-up examination after completed treatment for malignant neoplasm; Z85.828 Personal history of other malignant neoplasm of skin; Z09 Encounter for follow-up examination after completed treatment for conditions other than malignant neoplasm; Z87.2 Personal history of diseases of the skin and subcutaneous tissue; L82.0 Inflamed seborrheic keratosis | CPT/HCPCS: 17000; 17110; 99213 ==

== ENCOUNTER → 2025-06-12 08:55 | Outpatient (BNVA) | payer MEDICARE, SELFPAY | PROVIDERS: PCP Nurse Practitioner Family; Visit Provider Specialist | DX: M17.32 Unilateral post-traumatic osteoarthritis, left knee (principal); M11.262 Other chondrocalcinosis, left knee | CPT/HCPCS: 20610; 99214; J1100; J2795; J3301; J9999 ==